=== PATIENT | male | born 1970 | race Caucasian/White ===

== ENCOUNTER 2018-03-13 19:22 | Emergency (ER) | payer SELFPAY ==
[~2018-03-13 19:22] MED LIST: Iopamidol 370 76% 100 ML VIAL ONE
[2018-03-13] MEDS ORDERED: Ibuprofen 100 MG/5 ML UDCUP ONE (19:43)
[2018-03-13] MEDS ORDERED: Ketorolac Tromethamine 30 MG/ML VIAL ONE (19:50)
[2018-03-13 20:02] LABS: Hemoglobin 14.8 g/dL (14.0-18.0); MDiff Complete? YES; Mean Corpuscular HGB CONC 34.5 g/dL (32.0-36.0); Mean Corpuscular Hemoglobin 31.9 pg (27.0-31.0); Mean Corpuscular Volume 92.5 fl (80.0-94.0); Mean Platelet Volume 8.5 fL (7.4-10.4); Platelet Count 234 thou/uL (130-400); RBC Distribution Width 11.4 % (11.5-14.5); Red Blood Cell (RBC) Count 4.66 mill/uL (4.70-6.10); White Blood Cell (WBC) Count 14.1 thou/uL (4.8-10.8)
[2018-03-13 20:03] LABS: Band 3 % (5-11); Eosinophils 2 % (0-10); Lymphocytes 15 % (21-51); Monocytes 4 % (0-10); Neutrophil 76 % (42-75)
[2018-03-13 20:09] LABS: ALT (SGPT) 22 U/L (8-55); AST (SGOT) 11 U/L (5-34); Albumin 4.2 g/dL (3.5-5.0); Alkaline Phosphatase 86 U/L (40-150); Anion Gap 15 mmol/L (10-20); BUN (Urea Nitrogen) 14 mg/dL (8.9-20.6); Bilirubin, Total 0.6 mg/dL (0.2-1.2); Calc. Creatinine Clearance 0 mL/min (70-130); Calcium 9.3 mg/dL (7.8-10.44); Carbon Dioxide 26 mmol/L (22-29); Chloride 101 mmol/L (98-107); Estimated GFR-MDRD 71; Globulin 3.1 g/dL (2.4-3.5); Glucose 95 mg/dL (70-105); Lipase 22 U/L (8-78); Potassium 3.9 mmol/L (3.5-5.1); Protein, Total 7.3 g/dL (6.0-8.3); Sodium 138 mmol/L (136-145)
[2018-03-13 20:31] LABS: Bilirubin Negative (Negative); Blood, Urine Moderate (Negative); Clarity Cloudy (Clear); Glucose, Urine (Dipstick) Negative (Negative); Leukocyte Large (Negative); Nitrite Negative (Negative); Protein, Urine (Dipstick) 100 mg/dL (Neg-Trace); Specific Gravity, Urine 1.025 (1.005-1.030)
[2018-03-13 20:46] LABS: Bacteria/HPF 1+ HPF (None Seen); Hyaline Casts/LPF 0-3 HYALINE CAST LPF (0-3 Hyaline); Sperm/HPF 2+ HPF (None Seen)
--- NOTE | 2018-03-13 21:11 | CT ---
ABDOMEN AND PELVIC CT SCAN WITH IV CONTRAST: 03/13/18 HISTORY: 48-year-old male with history of pain including some right scrotal pain and swelling. Nausea. Lung bases are clear. The liver, gallbladder, pancreas, spleen, adrenal glands are unremarkable. Smal l right renal cysts. Tiny bilateral nonobstructing renal calculi. No evidence for acute obstructio n. Normal appearing appendix. There is some nonspecific fat stranding in the right and left inguinal regions and in the lower anterior pelvic soft tissues and extending down into the right scrotum. Ther e is evidence for a right side hydrocele. IMPRESSION: Tiny nonobstructing renal calculi. No evidence of acute obstruction. Small right renal cyst. Ivonne l appearing appendix. The urinary bladder is somewhat contracted but the wall is somewhat thickened r aising concern for the possibility of cystitis. Nonspecific fat stranding in the anterior soft tissue s of the lower pelvis and inguinal regions, right greater than left. Evidence for some right sided hy drocele. POS: [facility]
[2018-03-13] MEDS ORDERED: cefTRIAXone\\ROCEPHIN 250 MG VIAL ONE (21:25)
[2018-03-13] MEDS ORDERED: Lidocaine 1% PF 5 ML VIAL ONE (21:25)
--- NOTE | 2018-03-13 21:29 | ULT ---
TESTICULAR ULTRASOUND WITH COLOR AND SPECTRAL DOPPLER IMAGING 03/13/18 HISTORY: 48-year-old male with history of right testicular pain. Right and left testes are within normal limits of size, shape and position. There is a fairly promine nt somewhat septated, slightly complicated right sided hydrocele certainly raising concern for potent ial infection. The right epididymis is enlarged and shows some increased flow certainly concerning fo r some right epididymitis. Vascular duplex with color and spectral doppler imaging demonstrates flow bilaterally to both testes without evidence for testicular torsion. There is slightly increased flow in the right testis which c ould possibly suggest some mild inflammation, although no significant abnormal echogenicity is noted within the right testis. IMPRESSION: Evidence for right sided epididymitis with a complicated right sided hydrocele with increased blood f low within the right epididymis and minimally increased flow within the right testis which could sugg est some mild or early orchitis, but no evidence for associated abnormal echogenicity within the righ t testis itself. No evidence for testicular torsion. POS: [facility]
== END 2018-03-13 22:33 | disposition home or self-care (01) ==
LOC: SCSER 19:22
DX: N45.3 Epididymo-orchitis (principal); N30.01 Acute cystitis with hematuria; K40.90 Unilateral inguinal hernia, without obstruction or gangrene, not specified as recurrent
CPT/HCPCS: 74177; 76870; 80053; 81003; 81015; 83690; 85025; 87086; 93976; 96365; 96366; 96372; 96375; J0696; J1885; J1956; J2001